=== PATIENT | female | born 1985 | race Caucasian/White ===

== ENCOUNTER 2017-10-07 09:59 | Emergency (ER) | payer OTHER ==
[2017-10-07 09:59] VITALS: BMI 29.8
--- NOTE | 2017-10-07 10:24 | C.PDOC ---
History Of Present Illness 32 y/o female currently and 8 weeks presents to ED with complaints of cramping abdominal pain radiating to back and vaginal bleeding since yesterday. Patient reports associated dysuria and denies fever, chills, nausea, vomiting, change in sensation or any other complaints at this time. LMP 07/21/17. Time Seen by Provider: 10/07/17 10:14 Chief Complaint (Nursing): Abdominal Pain History Per: Patient History/Exam Limitations: no limitations Onset/Duration Of Symptoms: Days Current Symptoms Are (Timing): Still Present Location Of Pain/Discomfort: Suprapubic Radiation Of Pain To:: Back Past Medical History Reviewed: Historical Data, Nursing Documentation, Vital Signs Vital Signs: Last Vital Signs Temp 98.4 F 10/07/17 13:05 Pulse 72 10/07/17 13:05 Resp 18 10/07/17 13:05 BP 100/64 10/07/17 13:05 Pulse Ox 98 10/07/17 13:05 - Medical History PMH: No Chronic Diseases Surgical History: No Surg Hx - [facility] Procedures EXTRACTION OF POC, LOW CERVICAL, OPEN APPROACH (03/30/16) Family History: States: No Known Family Hx - Social History Hx Alcohol Use: No Hx Substance Use: No - Immunization History Hx Tetanus Toxoid Vaccination: No Hx Influenza Vaccination: No Hx Pneumococcal Vaccination: No Review Of Systems Constitutional: Negative for: Fever, Chills Gastrointestinal: Positive for: Abdominal Pain. Negative for: Nausea, Vomiting , Diarrhea Genitourinary: Positive for: Dysuria, Vaginal Bleeding Musculoskeletal: Positive for: Back Pain Skin: Negative for: Rash Physical Exam - Physical Exam Appears: Non-toxic, No Acute Distress Skin: Warm, Dry, No Rash Head: Normacephalic Eye(s): bilateral: Normal Inspection Oral Mucosa: Moist Neck: Normal ROM, Supple Cardiovascular: Rhythm Regular Respiratory: Normal Breath Sounds, No Rales, No Rhonchi, No Wheezing Gastrointestinal/Abdominal: Soft, Tenderness (minimal Suprapubic), No Guarding, No Rebound Back: No CVA Tenderness Extremity: Normal ROM, Capillary Refill (<2 seconds) Neurological/Psych: Oriented x3, Normal Speech, Normal Motor, Normal Sensation ED Course And Treatment - Laboratory Results Result Diagrams: 10/07/17 10:48 10/07/17 10:48 O2 Sat by Pulse Oximetry: 100 (RA) Pulse Ox Interpretation: Normal Medical Decision Making Medical Decision Making: patient with dysuria, pelvic pain and bleeding Labs reviewed. +UTI. US shows intrauterine gestation of approximately 6 weeks 4 days by ultrasound. No detectable cardiac activity. Possible demise. Recommend follow- up with serial beta HCG and transvaginal ultrasound. I discussed results with patient provided copies of labs and US report. I instructed patient to follow up in 48 hours for repeat BHCG and she verbalized understanding. Disposition Counseled Patient/Family Regarding: Diagnosis, Need For Followup, Rx Given - Disposition Referrals: Dereje Kaye MD [Medical Doctor] - Disposition: HOME/ ROUTINE Disposition Time: 12:21 Condition: STABLE Additional Instructions: You must follow up with senior strategy manager or return to hospital in 2-3 days for repeat BHCG Prescriptions: Nitrofurantoin Macrocrystals [Macrobid] 1 cap PO BID #14 cap Instructions: Threatened Miscarriage (ED) - POA Present On Arrival: None - Clinical Impression Clinical Impression: Threatened , UTI (urinary tract infection) - PA / APPAREL MANAGER / Resident Statement MD/DO has reviewed & agrees with the documentation as recorded. - Scribe Statement The provider has reviewed the documentation as recorded by the Jose A Escobar All medical record entries made by the Jose A were at my direction and personally dictated by me. I have reviewed the chart and agree that the record accurately reflects my personal performance of the history, physical exam, medical decision making, and the department course for this patient. I have also personally directed, reviewed, and agree with the discharge instructions and disposition.
[2017-10-07 10:55] LABS: BASO % 0.6 % (0.0-2.0); EOS # 0.1 K/uL (0.0-0.7); EOS % 2.1 % (0.0-4.0); HEMATOCRIT 42.2 % (34.0-47.0); LYMPH # 1.6 K/uL (1.0-4.3); MEAN CELL VOLUME 90.9 fL (81.0-99.0); MEAN CORPUSCULAR HEMOGLOBIN 29.8 pg (27.0-31.0); MEAN CORPUSCULAR HGB CONC 32.8 g/dL (33.0-37.0); MONO # 0.4 K/uL (0.0-0.8); MONO % 5.5 % (0.0-10.0); RED CELL DISTRIBUTION WIDTH 13.2 % (11.5-14.5); WHITE BLOOD COUNT 6.8 K/uL (4.8-10.8)
[2017-10-07 11:08] LABS: ALB/GLOB RATIO 1.4 (1.0-2.1); ALKALINE PHOSPHATASE 42 U/L (38-126); ALT/SGPT 29 U/L (9-52); AST/SGOT 29 U/L (14-36); BILIRUBIN,TOTAL 0.8 mg/dL (0.2-1.3); BLOOD UREA NITROGEN 7 mg/dL (7-17); CALCIUM 8.9 mg/dl (8.6-10.4); CARBON DIOXIDE 26 mmol/L (22-30); CHLORIDE 99 mmol/L (98-107); GFR AFRICAN-AMERICAN > 60; GLUCOSE,RANDOM 80 mg/dL (65-105); POTASSIUM 3.7 mmol/L (3.6-5.2); SODIUM 135 mmol/L (132-148); TOTAL PROTEIN 7.9 g/dL (6.3-8.3)
[2017-10-07 11:22] LABS: RBC URINE 46 /hpf (0-3); URINE BACTERIA RARE (<OCC); URINE BILIRUBIN NEGATIVE (NEGATIVE); URINE BLOOD 3+ (NEGATIVE); URINE COLOR Yellow (YELLOW); URINE GLUCOSE (UA) NORMAL (Normal); URINE KETONE NEGATIVE (NEGATIVE); URINE LEUKOCYTE ESTERASE 3+ Leu/uL (Negative); URINE PROTEIN NEGATIVE (NEGATIVE); URINE UROBILINOGEN NORMAL mg/dL (0.2-1.0); WBC CLUMPS FEW /hpf; WBC URINE 32 /hpf (0-5)
--- NOTE | 2017-10-07 11:53 | US ---
PROCEDURE: OB Pelvic Ultrasound HISTORY: preg, cramping pelvic pain and bleeding COMPARISON: None available. FINDINGS: UTERUS: Intrauterine gestational sac. pole identified. Levering-rump length equivalent to 6 weeks 1 day. Gestational sac diameter equivalent to 7 weeks 0 days. Composite gestational age is 6 weeks 4 days. The gestational sac is mildly deformed. No cardiac activity detected. Findings may reflect demise. Followup with serial beta HCG and transvaginal pelvic ultrasound is advised. Marcella-gestational hemorrhage: None. Uterus measures 10.0 x 5.8 x 6.3 cm. No mass CERVIX: Long and closed. No cervical abnormality seen. RIGHT OVARY: Measures 3.4 x 2.0 x 3.4 cm. No mass. Normal flow. Corpus luteum cyst, 1.4 cm diameter. LEFT OVARY: Measures 2.5 x 1.9 x 2.2 cm. No mass. Normal flow. FREE FLUID: None. OTHER FINDINGS: None. IMPRESSION: Intrauterine gestation of approximately 6 weeks 4 days by ultrasound. No detectable cardiac activity. Possible demise. Recommend follow-up with serial beta HCG and transvaginal ultrasound.
[2017-10-07 13:07] VITALS: BP 100/64; PULSE 72; RESP 18; TEMP 98.4
[2017-10-08 08:50] VITALS: O2SAT 100
== END 2017-10-07 13:06 | disposition home or self-care (01) ==
LOC: C.ER 09:59
DX: O20.0 Threatened abortion (principal); O23.41 Unspecified infection of urinary tract in pregnancy, first trimester; Z3A.01 Less than 8 weeks gestation of pregnancy